=== PATIENT | female | born 1985 ===

== ENCOUNTER 2019-07-15 07:12 | Inpatient (IN) ==
[2019-07-15] MEDS ORDERED: DINOPROSTONE 10 MG INSERT PV ONE (07:58)
[2019-07-15] MEDS ORDERED: OXYTOCIN 30 UNITS/500 ML BAG IV PRN ×3 (07:58→18:39)
[2019-07-15 08:22] LABS: Mean Corpuscular Volume 84.1 fL (80-100); Mean Platelet Volume 10.5 fL (7.4-10.4); Platelet Count 223 K/uL (130-400); RDW Coefficient of Variation 15.1 % (11.5-14.5); RDW Standard Deviation 46.1 fL (36.4-46.3); Red Blood Count 4.28 M/uL (4.2-5.4); White Blood Count 10.02 K/uL (4.8-10.8)
[2019-07-15] MEDS ORDERED: PATIENT'S ALLERGY INFO NEEDS ENTERED SCH (08:45)
[2019-07-15] MEDS ORDERED: PATIENT'S HEIGHT AND/OR WEIGHT NEEDED SCH (08:45)
[2019-07-15 09:09] LABS: Mean Corpuscular Hgb Conc 33.3 g/dL (32-36)
--- NOTE | 2019-07-15 09:34 | Obstetrical Progress Note ---
Date of Service July 15, 2019 Assessment & Plan Admission and Anticipated Discharge Date Admission Date: July 15, 2019 Results & Data ([facility]) Vital Signs (Past 12 Hours) Vital Signs Temp Pulse Resp BP 07/15/19 09:32 76 133/76 07/15/19 07:42 36.8 C 89 20 134/80
--- NOTE | 2019-07-15 09:36 | Obstetrical Progress Note ---
Date of Service July 15, 2019 Assessment & Plan Admission and Anticipated Discharge Date Admission Date: July 15, 2019 Subjective Admit Note 33 F P0000 at 40.6 weeks gestation admitted for post dates . GBS is negative. FHT Cat 1. No contractions or leakage of fluid. Cervix finger-tip/50/-3/vertex/posterior. Cervidil 10 mg placed vaginally. Results & Data ([facility]) Vital Signs (Past 12 Hours) Vital Signs Temp Pulse Resp BP 07/15/19 09:32 76 133/76 07/15/19 07:42 36.8 C 89 20 134/80
--- NOTE | 2019-07-15 13:19 | Obstetrical Progress Note ---
Date of Service July 15, 2019 Assessment & Plan Admission and Anticipated Discharge Date Admission Date: July 15, 2019 Physical Exam Genitourinary: Manual OB Exam: + cervical dilation 2 cm and 3 cm, + cervical effacement 70%, + station -2 and + amniotic fluid meconium OB Exam Monitor Tracing: + external FHT monitor used, + external uterine monitor used, + ca tegory I and + normal FHT variability SROM of thin meconium fluid Cervidil removed Results & Data ([facility]) Vital Signs (Past 12 Hours) Vital Signs Temp Pulse Resp BP 07/15/19 12:38 91 H 132/81 07/15/19 09:32 76 133/76 07/15/19 07:42 36.8 C 89 20 134/80
[2019-07-15] MEDS: LACTATED RINGER'S 1,000 ML IV PRN ×2 (16:30→17:25)
[2019-07-15] MEDS ORDERED: ePHEDrine sulfate 50 MG/ML AMP ONE (16:40)
[2019-07-15] MEDS ORDERED: BUPIVACAINE 0.25% 30 ML VIAL ONE (16:40)
[2019-07-15] MEDS ORDERED: fentaNYL citrate 100 MCG/2 ML VIAL ONE (16:40)
[2019-07-15] MEDS ORDERED: fentaNYL 2MCG/ML ROPIV 1.25MG/ML 100 ML BAG EPI ONE (16:40)
[2019-07-15] MEDS ORDERED: NALBUPHINE HCL INJ 10 MG/ML AMP IV PRN (17:24)
[2019-07-15] MEDS ORDERED: PROMETHAZINE HCL 6.25 MG in SODIUM CHLORIDE 0.9% 50 ML IV PRN (17:24)
[2019-07-15] MEDS ORDERED: NALOXONE HCL 0.4 MG/1 ML VIAL/CARP IV PRN (17:24)
[2019-07-15] MEDS ORDERED: ePHEDrine sulfate 50 MG/ML AMP IV PRN (17:24)
[2019-07-15] MEDS ORDERED: ONDANSETRON INJ 2 MG/ML 2 ML VIAL IV PRN (17:24)
[2019-07-15] MEDS ORDERED: DiphenhydrAMINE HCL 50 MG/ML VIAL IV PRN (17:24)
[2019-07-15] MEDS ORDERED: NALOXONE HCL 1 MG in SODIUM CHLORIDE 0.9% 1000ML 1,000 ML IV PRN (17:24)
--- NOTE | 2019-07-15 17:24 | Anesthesiology Consultation ---
Date of Service July 15, 2019 Assessment & Plan (1) Encounter for pre-operative examination: Chart Review Chart Review: Acceptable Risk for Surgery and Patient NOT seen in Pre Admission Testing Consults Requested none ASA ASA2 Proposed Anesthesia Anesthesia Type: Labor Epidural Risk / Benefits Reviewed With: PT / POA / Parent / Guardian, Accepts Plan and Informed Consent Obtained History Height/Weight Height: 5 ft 11 in Weight: 116.12 kg Allergies Allergy/AdvReac Type Severity Reaction Status Date / Time No Known Allergies Allergy Verified 07/15/19 10:35 Medications Home Medications Medication Instructions Recorded Confirmed Last Taken vit-iron fum-folic ac 1 tab PO DAILY 07/15/19 07/15/19 07/14/19 21:00 [ Vitamin] Active Medications Generic Name Dose Route Start Last Admin Trade Name Freq PRN Reason Stop Dose Admin Lactated Ringer's 1,000 mls @ 125 mls/hr 07/15/19 07:58 07/15/19 16:30 Lr IV 07/17/19 07:57 999 mls/hr .Q8H PRN Administration L&D Protocol Protocol NPO Date Last Intake of Fluids: 07/15/19 Time Last Intake of Fluids: 10:00 Date Last Intake of Solids: 07/15/19 Time Last Intake of Solids: 10:00 Past Medical History Medical History Uterine anomaly UTERINE FIBROID Exercise / Class Metabolic Activity II 4-5 Yardwork/Stairs/Walk up hill Past Family History Family History Father Diabetes mellitus, type 2 Mother Cancer Past Surgical History Surgical History History of laparoscopic cholecystectomy 07/05/2015 Past Anesthesia History No Hx of Anesthesia Complications and No Family Hx of Anesthesia Complications History of PONV No Hx of PONV and No Hx of Motion Sickness Social History Smoking Status: Never smoker Hx Alcohol Use: No Hx Substance Use: No substance use type: does not use Physical Exam Vital Signs Last Vital Signs Temp 36.8 C 07/15/19 15:50 Pulse 94 H 07/15/19 17:22 Resp 18 07/15/19 16:30 BP 148/77 H 04/21/20 17:22 Pulse Ox 100 07/15/19 17:20 ENMT Mouth: no dentition abnormality Thyromental Distance: > or= 3.5 Finger Breadths Mallampati Class: II Neck normal visual inspection Respiratory normal respiratory effort Auscultation: lungs clear to auscultation bilaterally Cardiovascular Rate/Rhythm: regular rate and regular rhythm Psychiatric Orientation: alert Testing Laboratory Results 07/15/19 08:08
--- NOTE | 2019-07-15 17:45 | Obstetrical Progress Note ---
Date of Service July 15, 2019 Assessment & Plan Admission and Anticipated Discharge Date Admission Date: July 15, 2019 Physical Exam Genitourinary: Manual OB Exam: + cervical dilation 4 cm, + cervical effacement 80% and + station -2 OB Exam Monitor Tracing: + external FHT monitor used, + external uterine monitor used, + category I and + normal FHT variability Will start Oxytocin to augment contractions EFW 8.5 lbs Results & Data ([facility]) Vital Signs (Past 12 Hours) Vital Signs Temp Pulse Resp BP Pulse Ox 07/15/19 17:40 90 100 07/15/19 17:35 93 H 99 07/15/19 17:30 108 H 20 99 07/15/19 17:28 106 H 151/69 H 07/15/19 17:26 96 H 145/67 H 07/15/19 17:25 97 H 99 07/15/19 17:24 101 H 139/65 07/15/19 17:22 94 H 148/77 H 07/15/19 17:20 101 H 138/63 100 07/15/19 17:18 88 138/65 07/15/19 17:16 90 145/68 H 07/15/19 17:15 94 H 99 07/15/19 17:14 93 H 129/83 07/15/19 17:10 95 H 100 07/15/19 17:05 102 H 99 07/15/19 17:00 88 20 100 07/15/19 16:55 79 100 07/15/19 16:50 87 100 07/15/19 16:45 87 100 07/15/19 16:40 88 100 07/15/19 16:35 90 100 07/15/19 16:30 91 H 18 100 07/15/19 16:00 20 07/15/19 15:52 85 141/83 H 07/15/19 15:50 36.8 C 20 07/15/19 13:31 36.8 C 20 07/15/19 12:38 91 H 132/81 07/15/19 09:32 76 133/76 07/15/19 07:42 36.8 C 89 20 134/80
--- NOTE | 2019-07-15 22:15 | Obstetrical Progress Note ---
Date of Service July 15, 2019 Assessment & Plan Admission and Anticipated Discharge Date Admission Date: July 15, 2019 Physical Exam Genitourinary: Manual OB Exam: + cervical dilation 4 cm, + cervical effacement 80% and + station -2 OB Exam Monitor Tracing: + external FHT monitor used, + external uterine monitor used, + category I and + normal FHT variability will continue Oxytocin Results & Data ([facility]) Vital Signs (Past 12 Hours) Vital Signs Temp Pulse Resp BP Pulse Ox 07/15/19 22:10 85 97 07/15/19 22:05 83 96 07/15/19 22:00 85 94 07/15/19 21:59 83 116/57 L 07/15/19 21:55 78 94 07/15/19 21:50 86 94 07/15/19 21:45 86 94 07/15/19 21:44 82 114/53 L 07/15/19 21:40 81 95 07/15/19 21:35 84 95 07/15/19 21:30 95 H 16 95 07/15/19 21:29 82 121/54 L 07/15/19 21:25 84 94 07/15/19 21:20 83 95 07/15/19 21:15 81 95 07/15/19 21:14 85 112/55 L 07/15/19 21:10 85 94 07/15/19 21:05 85 96 07/15/19 21:00 86 110/51 L 96 07/15/19 20:55 84 96 07/15/19 20:50 90 97 07/15/19 20:45 91 H 97 07/15/19 20:44 86 138/60 07/15/19 20:40 92 H 97 07/15/19 20:35 90 96 07/15/19 20:30 97 H 20 93 07/15/19 20:29 88 131/60 07/15/19 20:26 89 93 07/15/19 20:25 87 96 07/15/19 20:20 89 93 07/15/19 20:15 92 H 93 07/15/19 20:14 84 132/61 07/15/19 20:10 84 95 07/15/19 20:05 86 96 07/15/19 20:00 89 18 97 07/15/19 19:59 82 124/58 L 07/15/19 19:55 91 H 97 07/15/19 19:50 90 97 07/15/19 19:45 88 98 07/15/19 19:44 85 136/68 07/15/19 19:40 89 97 07/15/19 19:35 89 97 07/15/19 19:30 36.8 C 91 H 20 98 07/15/19 19:29 90 138/66 07/15/19 19:25 91 H 98 07/15/19 19:20 88 99 07/15/19 19:15 95 H 99 07/15/19 19:14 91 H 131/69 07/15/19 19:10 91 H 99 07/15/19 19:05 101 H 100 07/15/19 19:00 36.8 C 97 H 20 100 07/15/19 18:59 98 H 127/60 07/15/19 18:55 97 H 110/75 99 07/15/19 18:50 97 H 100 07/15/19 18:45 92 H 100 07/15/19 18:44 113 H 92 07/15/19 18:40 111 H 100 07/15/19 18:35 95 H 97 07/15/19 18:30 88 20 127/65 97 07/15/19 18:25 91 H 97 07/15/19 18:20 95 H 98 07/15/19 18:15 98 H 97 07/15/19 18:14 94 H 126/61 07/15/19 18:10 96 H 95 07/15/19 18:05 91 H 97 07/15/19 18:01 20 07/15/19 18:00 86 100 07/15/19 17:59 92 H 122/56 L 07/15/19 17:55 88 100 07/15/19 17:50 96 H 100 07/15/19 17:45 94 H 134/70 100 07/15/19 17:40 90 100 07/15/19 17:35 93 H 99 07/15/19 17:30 108 H 20 99 07/15/19 17:28 106 H 151/69 H 07/15/19 17:26 96 H 145/67 H 07/15/19 17:25 97 H 99 07/15/19 17:24 101 H 139/65 07/15/19 17:22 94 H 148/77 H 07/15/19 17:20 101 H 138/63 100 07/15/19 17:18 88 138/65 07/15/19 17:16 90 145/68 H 07/15/19 17:15 94 H 99 07/15/19 17:14 93 H 129/83 07/15/19 17:10 95 H 100 07/15/19 17:05 102 H 99 07/15/19 17:00 88 20 100 07/15/19 16:55 79 100 07/15/19 16:50 87 100 07/15/19 16:45 87 100 07/15/19 16:40 88 100 07/15/19 16:35 90 100 07/15/19 16:30 91 H 18 100 07/15/19 16:00 20 07/15/19 15:52 85 141/83 H 07/15/19 15:50 36.8 C 07/15/19 13:31 36.8 C 07/15/19 12:38 91 H 132/81
[2019-07-16] MEDS: LACTATED RINGER'S 1,000 ML IV PRN ×2 (01:55→10:02)
[2019-07-16] MEDS: fentaNYL 2MCG/ML ROPIV 1.25MG/ML 100 ML BAG EPI PRN ×2 (02:34→09:15)
[2019-07-16] MEDS ORDERED: LIDOCAINE HCL 2% MPF (LOCAL) 5 ML VIAL INFIL ONE (09:12)
[2019-07-16] MEDS ORDERED: fentaNYL citrate 100 MCG/2 ML VIAL ONE (09:13)
[2019-07-16] MEDS ORDERED: METHYLERGONOVINE MALEATE 0.2 MG/ML AMP ONE (11:11)
[2019-07-16] MEDS ORDERED: METHYLERGONOVINE MALEATE 0.2 MG/ML AMP IM ONE (11:23)
[2019-07-16] MEDS ORDERED: ACETAMINOPHEN 325 MG TAB PO PRN (11:23)
[2019-07-16] MEDS ORDERED: HYDROCORTISONE ACETATE 25 MG SUPP PR PRN (11:23)
[2019-07-16] MEDS ORDERED: SUPERCREAM 0.870% 15 GM JAR EXT PRN (11:23)
[2019-07-16] MEDS ORDERED: OXYTOCIN 30 UNITS/500 ML BAG IV PRN (11:23)
[2019-07-16] MEDS ORDERED: ACETAMINOPHEN W/CODEINE #3 1 TAB PO PRN (11:23)
[2019-07-16] MEDS ORDERED: OXYCODONE/ACETAMINOPHEN 5mg/325mg TAB PO PRN (11:23)
[2019-07-16] MEDS ORDERED: DIPHTHERIA/TETANUS/PERTUSSIS 0.5 ML SYR/VIAL IM ONE (11:23)
[2019-07-16] MEDS ORDERED: bisacodyL 10 MG SUPP PR PRN (11:23)
[2019-07-16] MEDS ORDERED: BENZOCAINE 20% AER SPR 82.5 GM CAN EXT PRN (11:23)
--- NOTE | 2019-07-16 11:43 | Anesthesia Procedure Note ---
Date of Service July 16, 2019 Anesthesia Post Epidural Note Vital Signs Vital Signs: Temp Pulse Resp BP Pulse Ox 37.0 C 103 H 20 114/57 L 100 07/16/19 11:20 07/16/19 11:29 07/16/19 11:20 07/16/19 11:29 07/16/19 10:25 Pain Intensity Abdomen: Pain Intensity: 3 Perineal: Pain Intensity: 0 Notes Mental Status: alert / awake / arousable Nausea / Vomiting: adequately controlled Pain: adequately controlled Airway Patency, RR, SpO2: stable & adequate BP & HR: stable & adequate Hydration State: stable & adequate Neuraxial Anesthesia: was administered and sensory block is resolving Anesthetic Complications: no major complications apparent and Pt Satisfied with anesthetic care Epidural: Removed without complications and With tip intact
--- NOTE | 2019-07-16 11:51 | Delivery Summary ---
DATE OF OPERATION: 07/16/2019 She was brought in for induction of labor at 41 weeks. She went from Cervidil tape, then she went to IV Pitocin. She had epidural for pain control, then she was augmented with the IV Pitocin to establish regular contractions, crowned the without difficulty and then delivered a live infant over an intact perineum. Infant was suctioned through the mouth and the nose. There was a cord that came down with the . It was not wrapped around the neck, was just parallel. Body was delivered without difficulty. Cord was clamped, cut by the father. Then as per the patient's request, I did collected cord blood for donation. Her blood type is O positive, group B strep negative. With IV Pitocin running and then IM Methergine, the placenta was removed intact. Hemostasis was good. After removal of the placenta, there were 2 superficial lacerations of the vaginal mucosa, one at about 9 o'clock and the other one at about 3 o'clock and both these repaired with a running 2-0 chromic. Following this, vag exam including rectovaginal examination revealed no hematoma formation or sponges in the vagina. Estimated blood loss was 100 mL. Apgars were good and deferred to the nurses. The placenta was lightly meconium stained. I attest to the content of the Intraoperative Record and any orders documented therein. Any exception s are noted below.
[2019-07-16] MEDS: IBUPROFEN 600 MG TAB PO PRN ×2 (12:58→23:04)
[2019-07-16] MEDS: DOCUSATE SODIUM 100 MG CAP PO SCH (21:02)
[2019-07-17] MEDS: IBUPROFEN 600 MG TAB PO PRN ×4 (03:24→23:07)
[2019-07-17 06:13] LABS: Hematocrit (blood only) 34.4 % (37-47); Hemoglobin 11.5 g/dL (12.0-16.0); Mean Corpuscular Hemoglobin 28.5 pg (25-34); Mean Corpuscular Hgb Conc 33.4 g/dL (32-36); Mean Corpuscular Volume 85.4 fL (80-100); Mean Platelet Volume 10.2 fL (7.4-10.4); Platelet Count 221 K/uL (130-400); RDW Coefficient of Variation 15.1 % (11.5-14.5); RDW Standard Deviation 46.8 fL (36.4-46.3); Red Blood Count 4.03 M/uL (4.2-5.4); White Blood Count 15.89 K/uL (4.8-10.8)
--- NOTE | 2019-07-17 07:49 | Obstetrical Progress Note ---
Date of Service July 17, 2019 Assessment & Plan Admission and Anticipated Discharge Date Admission Date: July 15, 2019 Subjective Patient is seen and examined. She feels well, no complaints. Ambulating without dizziness Voiding without difficulty Tolerating regular diet with out N&V Bleeding is minimal No fever/ chills/ CP/ SOB/ N&V/ Leg pain Breast feeding without problems Vital Signs Temp Pulse Pulse Resp BP BP Pulse Ox 07/17/19 03:30 36.3 C L 71 18 133/83 07/16/19 23:20 36.5 C 84 18 129/81 07/16/19 19:40 36.7 C 91 H 18 137/84 07/16/19 15:00 36.8 C 83 18 125/79 97 07/16/19 14:21 37.0 C 110 H 18 145/83 H 07/16/19 14:00 37.0 C 20 07/16/19 13:59 83 150/68 H 07/16/19 13:44 90 153/72 H 07/16/19 13:30 97 H 163/76 H 07/16/19 13:20 18 07/16/19 13:14 93 H 129/58 L 07/16/19 12:59 90 20 136/60 07/16/19 12:44 86 148/67 H 07/16/19 12:29 97 H 141/65 H 07/16/19 12:22 93 H 150/70 H 07/16/19 12:20 18 07/16/19 12:05 18 07/16/19 11:59 103 H 119/65 07/16/19 11:50 18 07/16/19 11:44 99 H 123/64 07/16/19 11:35 103 H 18 114/57 L 07/16/19 11:29 103 H 114/57 L 07/16/19 11:20 37.0 C 20 07/16/19 11:14 122 H 122/66 07/16/19 11:11 122 H 121/69 07/16/19 11:01 150 H 148/76 H 07/16/19 10:45 121 H 133/99 07/16/19 10:31 97 H 136/61 07/16/19 10:30 111 H 180/106 H 07/16/19 10:25 102 H 100 07/16/19 10:20 101 H 99 07/16/19 10:15 100 H 100 07/16/19 10:10 102 H 99 07/16/19 10:05 97 H 99 07/16/19 10:00 101 H 137/77 98 07/16/19 09:55 104 H 96 07/16/19 09:50 86 94 07/16/19 09:45 83 133/66 94 07/16/19 09:40 84 93 07/16/19 09:35 83 97 07/16/19 09:30 85 137/71 96 07/16/19 09:25 92 H 97 07/16/19 09:20 97 H 99 07/16/19 09:15 92 H 97 07/16/19 09:14 88 144/77 H 07/16/19 09:10 100 H 99 07/16/19 09:05 102 H 99 07/16/19 09:00 36.7 C 102 H 20 98 07/16/19 08:59 106 H 133/77 07/16/19 08:55 91 H 99 07/16/19 08:50 91 H 98 07/16/19 08:45 89 134/73 99 07/16/19 08:40 87 98 07/16/19 08:35 83 97 07/16/19 08:30 88 98 07/16/19 08:29 84 136/72 07/16/19 08:25 88 98 07/16/19 08:20 85 96 07/16/19 08:15 90 98 07/16/19 08:14 85 134/65 07/16/19 08:10 84 99 07/16/19 08:05 86 99 07/16/19 08:00 86 98 07/16/19 07:59 88 134/62 07/16/19 07:55 95 H 97 07/16/19 07:50 94 H 100 Intake and Output 07/16/19 07/17/19 07/17/19 22:59 06:59 14:59 Output Total 500 / 1050 Balance -500 / 542.016 Output: Urine 500 / 500 PE: General: Alert, orientedx3, NAD Abd: soft, NT, fundus firm, below Umbilicus Perineum intact, Lochia rubra minimal Ext; NT, no edema AP: 33 yo s/p , ppd# 1 VSS Afebrile doing well Continue routine care All questions were answered D/C home tomorrow Results & Data ([facility]) Vital Signs (Past 12 Hours) Vital Signs Temp Pulse Resp BP 07/17/19 03:30 36.3 C L 71 18 133/83 07/16/19 23:20 36.5 C 84 18 129/81
[2019-07-17] MEDS: PRENATAL VITAMIN 1 TAB PO SCH (08:03)
[2019-07-17] MEDS: DOCUSATE SODIUM 100 MG CAP PO SCH ×2 (08:03→20:05)
[2019-07-17] MEDS ORDERED: bisacodyL 5 MG TABEC PO SCH (20:00)
[2019-07-18 06:18] LABS: Basophils # (auto) 0.03 K/uL (0-0.2); Basophils % (auto) 0.3 %; Eosinophils # (auto) 0.21 K/uL (0-0.5); Hemoglobin 10.9 g/dL (12.0-16.0); Immature Granulocytes # (auto) 0.12 K/uL (0.00-0.02); Immature Granulocytes % (auto) 1.1 %; Lymphocytes # (auto) 2.38 K/uL (1.2-3.4); Lymphocytes % (auto) 22.6 %; Mean Corpuscular Hemoglobin 27.9 pg (25-34); Mean Corpuscular Volume 84.6 fL (80-100); Mean Platelet Volume 10.5 fL (7.4-10.4); Monocytes # (auto) 0.91 K/uL (0.11-0.59); Monocytes % (auto) 8.6 %; Neutrophils # (auto) 6.88 K/uL (1.4-6.5); Neutrophils % (auto) 65.4 %; Platelet Count 217 K/uL (130-400); RDW Coefficient of Variation 15.2 % (11.5-14.5); RDW Standard Deviation 46.9 fL (36.4-46.3); White Blood Count 10.53 K/uL (4.8-10.8)
[2019-07-18] MEDS: DOCUSATE SODIUM 100 MG CAP PO SCH (09:05)
[2019-07-18] MEDS: PRENATAL VITAMIN 1 TAB PO SCH (09:05)
[2019-07-18] MEDS: IBUPROFEN 600 MG TAB PO PRN (09:05)
--- NOTE | 2019-07-18 10:16 | Obstetrical Progress Note ---
Date of Service July 18, 2019 Assessment & Plan (1) Normal course: PPD #2 pt doing well disch home with instrcutions Results & Data Vital Signs (Past 12 Hours) Vital Signs Temp Pulse Resp BP Pulse Ox 07/17/19 23:05 36.4 C L 68 18 140/84 97
== END 2019-07-18 13:30 | disposition home or self-care (01) | DRG 807 ==
LOC: 4S1 07:12 → 4S2 07-16 14:55